=== PATIENT | male | born 1970 | race Hispanic/Latino ===

== ENCOUNTER → 2018-10-27 | Day surgery (SDC) | payer OTHER ==
[~2018-10-27] MED LIST: AMLODIPINE BESY10 MG PO; ASPIR 8181 MG PO; ATORVASTATIN CA40 MG PO; CLOPIDOGREL75 MG PO; DICYCLOMINE HCL10 MG; FENTANYL CITRATE/PF 100MCG/2 ML INJ ONE; HYOSCYAMINE 0.125 MG TAB ONE; INSULIN REGULAR, HUMAN 100 UNIT/1 ML 3ML VIAL ONE; JANUVIA100 MG PO; JARDIANCE; KETAMINE HCL INJ 50 MG/ML 10 ML VIAL ONE; LEVEMIR100 UNIT/1; LEVEMIR100 UNIT/1 SC; LEVEMIR100 UNIT/1 SQ; LIDOCAINE HCL 2% LOCAL INJ 5 ML SDV VIAL INJ ONE; LINZESS; LISINOPRIL10 MG PO; LORATADINE10 MG PO; LYRICA75 MG; LYRICA75 MG PO; METOPROLOL TART50 MG PO; MIDAZOLAM HCL 2 MG/2 ML VIAL ONE; NITROGLYCERIN0.4 MG SL; NORCO 10-325 T1 EACH; NOVALIN; NOVOLOG100 UNITS1; NOVOLOG100 UNITS1 SC; OXYCODONE HCL5 MG PO; PERCOCET 10-321 EACH; PLAVIX75 MG PO; PREVACID30 MG; PROPOFOL IV EMULSION 10 MG/ML 50 ML VIAL ONE
[2018-10-27 18:18] LABS: WBC,FECAL (FECAL LACTOFERRIN) NEGATIVE (NEGATIVE)
[2018-10-27 18:24] VITALS: BP 139/82
--- NOTE | 2018-10-27 18:54 | Operative Report ---
DATE OF PROCEDURE: 10/27/2018 SURGEON: Miah Truong MD PROCEDURES: 1. Esophagogastroduodenoscopy with biopsies. 2. Colonoscopy with biopsies. INDICATIONS FOR ESOPHAGOGASTRODUODENOSCOPY: Heartburn, indigestion, and bloating. INDICATIONS FOR COLONOSCOPY: Lower abdominal pain, intermittent diarrhea, and history of bright red blood per rectum. MEDICATIONS: The patient was done under MAC. Please see anesthesiologist's note. PROCEDURE IN DETAIL: With the patient in left lateral decubitus position, the flexible fiberoptic Olympus gastroscope was introduced into the esophagus under direct visualization without any difficulty. Scattered whitish plaques were noted in the esophagus, those were brushed and sent to stain for Vicky. The scope was then advanced with ease into the stomach. Mucosa overlying the antrum and the body revealed some patchy erythema and low-grade to moderate edema. Biopsies were obtained and sent to stain for H pylori. The pylorus was of normal contour and shape, it was intubated with ease. The scope was advanced all the way to the second portion of the duodenum. The scope was then withdrawn slowly and biopsies were obtained from the second portion of the duodenal bulb to rule out sprue. The scope was then withdrawn back into the stomach and retroflexed mucosa overlying the fundus and cardia appeared to be within normal limits. The scope was then straightened out, it was subsequently withdrawn. The patient tolerated the procedure well. IMPRESSION: 1. Rule out Vicky esophagitis. 2. Gastritis, biopsied. Biopsies sent to stain for Helicobacter pylori. 3. Rule out sprue. PLAN: Follow up histology. Initiate Protonix 40 mg one p.o. q.a.m. before meals. The patient was then turned around. After adequate lubrication of the anal canal, a flexible fiberoptic Olympus colonoscope was inserted into the rectum with ease and advanced all the way to the cecum. Mucosa overlying the cecum appeared to be within normal limits. The ileocecal valve was intubated and the scope was advanced into the terminal ileum. Biopsies were obtained. The scope was then withdrawn back into the colon. It was then withdrawn slowly. Mucosa overlying the ascending and the transverse grossly appeared to be within normal limits. There was some mild inflammatory changes noted in the left colon and random biopsies were obtained. The scope was then retroflexed into the distal rectum and small internal hemorrhoids were noted, none of which was actively bleeding. The scope was then straightened out, it was subsequently withdrawn. After securing an adequate stool specimen, that was sent for the appropriate stool studies. The patient tolerated the procedure well. IMPRESSION: 1. Mild patchy left-sided colitis. 2. Internal hemorrhoids, none actively bleeding. PLAN: Followup histology. Followup stool studies. Initiate Visbiome 1 p.o. b.i.d. and Bentyl 10 mg one p.o. t.i.d. Miah Truong MD [facility] [place] /[id number] cc: Dr. Zach Hall
[2018-10-28 14:20] LABS: C DIFFICILE TOXIN A&B AMP PROB NEGATIVE (NEGATIVE)
== END | disposition home or self-care (01) ==
LOC: OR 01:30
PROVIDERS: ATTEND Internal Medicine Gastroenterology
DX: K62.89 Other specified diseases of anus and rectum (principal); R10.9 Unspecified abdominal pain; R14.0 Abdominal distension (gaseous); K59.00 Constipation, unspecified; R10.32 Left lower quadrant pain; R19.7 Diarrhea, unspecified; G43.A0 Cyclical vomiting, in migraine, not intractable; Z68.37 Body mass index [BMI] 37.0-37.9, adult; Z95.1 Presence of aortocoronary bypass graft; J18.9 Pneumonia, unspecified organism; E11.9 Type 2 diabetes mellitus without complications; K21.9 Gastro-esophageal reflux disease without esophagitis; K44.9 Diaphragmatic hernia without obstruction or gangrene; Z87.442 Personal history of urinary calculi; I25.2 Old myocardial infarction; E78.00 Pure hypercholesterolemia, unspecified; K51.50 Left sided colitis without complications; K64.8 Other hemorrhoids; K29.50 Unspecified chronic gastritis without bleeding; Z79.4 Long term (current) use of insulin; Z79.82 Long term (current) use of aspirin
CPT/HCPCS: 36415; 43239; 45380; 82948; 83630; 83993; 87045; 87177; 87328; 87493; J1817; J2001; J2250; J3010

== ENCOUNTER → 2018-11-20 | Day surgery (SDC) | payer OTHER ==
[2018-11-14 15:44] LABS: ALANINE AMINOTRANSFERASE 26 IU/L (0-55); ALBUMIN/GLOBULIN RATIO 1.1 (0.8-2.0); ALKALINE PHOSPHATASE 129 IU/L (40-150); ANION GAP 15.9 mmol/L (8-16); BLOOD UREA NITROGEN 13 mg/dL (7-26); BUN/CREATININE RATIO 16 (6-25); CALCIUM 9.9 mg/dL (8.4-10.2); CARBON DIOXIDE 24 mmol/L (22-29); CHLORIDE 103 mmol/L (98-107); EST GLOMERULAR FILTRATION RATE > 60 ML/MIN (60-); GLUCOSE 88 mg/dL (74-118); POTASSIUM 3.9 mmol/L (3.5-5.1); SODIUM 139 mmol/L (136-145)
[~2018-11-20] MED LIST changes: +BACITRACIN 50,000 UNIT VIAL ONE; +BUPIVACAINE 0.5%/EPI 30 ML SDV INJ ONE; +DEXAMETHASONE SOD PHOS INJ 4 MG/ML VIAL ONE; +EPHEDRINE SULFATE INJ 50 MG/10 ML SYR ONE; +GLYCOPYRROLATE INJ 1MG/ 5 ML SYR ONE; -HYOSCYAMINE 0.125 MG TAB ONE; -INSULIN REGULAR, HUMAN 100 UNIT/1 ML 3ML VIAL ONE; -KETAMINE HCL INJ 50 MG/ML 10 ML VIAL ONE; +KETOROLAC TROMETHAMINE 30 MG/ML VIAL ONE; +LEVOFLOXACIN 500MG/D5W 100ML 100 ML IV ONE; +NEOSTIGMINE 5 MG/5ML SYR ONE; +ONDANSETRON HCL INJ 2MG/ML 2ML 2 MG/ML VIAL ONE; +PROPOFOL IV EMULSION 10 MG/ML 20 ML VIAL ONE; -PROPOFOL IV EMULSION 10 MG/ML 50 ML VIAL ONE; +ROCURONIUM BROMIDE 10 MG/ML 5ML VIAL ONE; +SEVOFLURANE INHAL SOLN 250 ML PEN BTL ONE; +SUCCINYLCHOLINE 200 MG/10 ML SYR ONE
[2018-11-20 15:29] VITALS: BP 106/80
--- NOTE | 2018-12-10 23:56 | Operative Report ---
DATE OF PROCEDURE: 11/20/2018 SURGEON: Nito Bright MD PREOPERATIVE DIAGNOSIS: Recurrent umbilical hernia. POSTOPERATIVE DIAGNOSIS: Recurrent umbilical hernia. OPERATIVE PROCEDURE: Repair of umbilical hernia with mesh. ANESTHESIA: General. INDICATION FOR SURGERY: A 48-year-old male with history of recurrent umbilical hernia with discomfort. The patient consented for repair. Attendant risks discussed. PROCEDURE FINDING: Recurrent umbilical hernia. DESCRIPTION OF PROCEDURE: The patient was brought to the OR and intubated. The abdomen was prepped with alcohol and draped in sterile fashion. A supraumbilical incision is made through the previous scar extending down to the fascia. The hernia sac was identified and dissected off the umbilicus. The sac protruded cephalad to the previous hernia repair with mesh. The previous mesh was noted and trimmed off with sharp scissor dissection. The fascial defect was delineated and we stayed in the preperitoneal space without seeing the intestine. With the preperitoneal space developed circumferentially 3-5 cm from the fascial edge, we then deployed a flat piece of Prolene mesh, approximately 6 cm in diameters into the preperitoneal space. The overlying fascia was closed in transverse direction with interrupted 0 Prolene suture, taking by into the underlying mesh. The fascial defect measured approximately 3 cm, which is closed in transverse direction as mentioned. Operative field was then irrigated. Hemostasis achieved. The subcutaneous tissue was then approximated with 3-0 Vicryl and the skin with subcuticular stitch. Dressing applied. The patient tolerated the procedure well, was extubated, and transported to recovery room. ESTIMATED BLOOD LOSS: 5 mL. Nito Bright MD D[facility] /[id number]
== END | disposition home or self-care (01) ==
LOC: OR 10:18
PROVIDERS: ATTEND Surgery
DX: K42.9 Umbilical hernia without obstruction or gangrene (principal); E11.9 Type 2 diabetes mellitus without complications; I10 Essential (primary) hypertension; G62.9 Polyneuropathy, unspecified; G47.33 Obstructive sleep apnea (adult) (pediatric); I25.810 Atherosclerosis of coronary artery bypass graft(s) without angina pectoris; I25.2 Old myocardial infarction; Z88.0 Allergy status to penicillin; Z01.812 Encounter for preprocedural laboratory examination; Z79.02 Long term (current) use of antithrombotics/antiplatelets; Z79.82 Long term (current) use of aspirin; Z79.84 Long term (current) use of oral hypoglycemic drugs; Z79.4 Long term (current) use of insulin; Z68.37 Body mass index [BMI] 37.0-37.9, adult; Z95.1 Presence of aortocoronary bypass graft
CPT/HCPCS: 36415; 80053; 82948; C1781; J1100; J1885; J1956; J2001; J2250; J2405; J3010

== ENCOUNTER 2019-06-18 15:28 | Emergency (ER) | payer OTHER ==
[~2019-06-18] VITALS: Ht 180.3 cm; Wt 117.9 kg
[~2019-06-18 15:28] MED LIST changes: -BACITRACIN 50,000 UNIT VIAL ONE; -BUPIVACAINE 0.5%/EPI 30 ML SDV INJ ONE; -DEXAMETHASONE SOD PHOS INJ 4 MG/ML VIAL ONE; -EPHEDRINE SULFATE INJ 50 MG/10 ML SYR ONE; -FENTANYL CITRATE/PF 100MCG/2 ML INJ ONE; -GLYCOPYRROLATE INJ 1MG/ 5 ML SYR ONE; -KETOROLAC TROMETHAMINE 30 MG/ML VIAL ONE; -LEVOFLOXACIN 500MG/D5W 100ML 100 ML IV ONE; -LIDOCAINE HCL 2% LOCAL INJ 5 ML SDV VIAL INJ ONE; -MIDAZOLAM HCL 2 MG/2 ML VIAL ONE; -NEOSTIGMINE 5 MG/5ML SYR ONE; -ONDANSETRON HCL INJ 2MG/ML 2ML 2 MG/ML VIAL ONE; -PROPOFOL IV EMULSION 10 MG/ML 20 ML VIAL ONE; -ROCURONIUM BROMIDE 10 MG/ML 5ML VIAL ONE; -SEVOFLURANE INHAL SOLN 250 ML PEN BTL ONE; -SUCCINYLCHOLINE 200 MG/10 ML SYR ONE
[2019-06-18] MEDS ORDERED: SODIUM CHLORIDE 0.9% 1000ML 1,000 ML IV STA (15:42)
[2019-06-18] MEDS ORDERED: ONDANSETRON HCL INJ 2MG/ML 2ML 2 MG/ML VIAL IV STA (15:42)
[2019-06-18] MEDS ORDERED: ASPIRIN 81 MG CHEW TAB PO ONE (15:45)
[2019-06-18] MEDS ORDERED: DICYCLOMINE HCL 20 MG/2 ML VIAL IM ONE (15:45)
[2019-06-18 16:11] LABS: BASOPHILS # (AUTO) 0.1 (0.0-0.1); BASOPHILS % 0.5 % (0.0-1.0); EOSINOPHILS # (AUTO) 0.1 (0.0-0.4); HEMATOCRIT 51.2 % (38.2-49.6); HEMOGLOBIN 17.5 g/dL (14.0-18.0); LYMPHOCYTES # (AUTO) 1.8 (1.0-3.2); MEAN CORPUSCULAR HEMOGLOBIN 30.5 pg (28-32); MEAN CORPUSCULAR HGB CONC 34.2 g/dL (31-35); MEAN CORPUSCULAR VOLUME 89.2 fL (81-99); MONOCYTES # (AUTO) 0.6 (0.2-0.8); NEUTROPHILS % 74.9 % (38.7-80.0); PLATELET COUNT 331 x10e3/uL (140-360); RED BLOOD COUNT 5.74 x10e6/uL (4.3-5.7); RED CELL DISTRIBUTION WIDTH 12.6 % (11.7-14.4)
[2019-06-18 16:19] LABS: INR 0.86; PROTHROMBIN TIME 12.2 seconds (11.9-14.5)
[2019-06-18 16:20] LABS: PARTIAL THROMBOPLASTIN TIME 28.3 seconds (23.8-35.5)
[2019-06-18 16:28] LABS: ALANINE AMINOTRANSFERASE 62 IU/L (0-55); ALBUMIN 3.9 g/dL (3.5-5.0); ALBUMIN/GLOBULIN RATIO 1.1 (0.8-2.0); ALKALINE PHOSPHATASE 136 IU/L (40-150); AMYLASE 15 U/L (25-125); ANION GAP 13.1 mmol/L (8-16); BLOOD UREA NITROGEN 9 mg/dL (7-26); BUN/CREATININE RATIO 10 (6-25); CALCIUM 9.6 mg/dL (8.4-10.2); CARBON DIOXIDE 30 mmol/L (22-29); CHLORIDE 98 mmol/L (98-107); CREATINE KINASE 94 IU/L (30-200); EST GLOMERULAR FILTRATION RATE > 60 ML/MIN (60-); GLUCOSE 363 mg/dL (74-118); LIPASE 5 U/L (8-78); POTASSIUM 4.1 mmol/L (3.5-5.1); SODIUM 137 mmol/L (136-145)
--- NOTE | 2019-06-18 17:12 | Diagnostic Imaging Report ---
EXAMINATION: CHEST SINGLE (PORTABLE) INDICATION: Cough COMPARISON: Chest radiograph 10/21/2018 FINDINGS: LINES/TUBES:EKG leads overlie the chest. LUNGS:The lungs are well-inflated. No focal consolidation or pulmonary edema. PLEURA:No pleural effusion or pneumothorax. MEDIASTINUM:The cardiomediastinal silhouette appears normal in size and shape. BONES/SOFT TISSUES:No acute osseous injury. ABDOMEN:No free air under the diaphragm. IMPRESSION: No focal pneumonia or pulmonary edema. Signed by: Rebecca Coulter MD on 06/18/2019 5:08 PM
[2019-06-18] MEDS ORDERED: INSULIN REGULAR, HUMAN 100 UNIT/1 ML 3ML VIAL SQ ONE (17:45)
[2019-06-18] MEDS ORDERED: KETOROLAC TROMETHAMINE 30 MG/ML VIAL IV STA (18:06)
[2019-06-18 18:16] LABS: BILIRUBIN,URINE NEGATIVE (NEGATIVE); CLARITY,URINE CLEAR (CLEAR); COLOR,URINE YELLOW (YELLOW); KETONES,URINE NEGATIVE (NEGATIVE); LEUKOCYTE ESTERASE ,URINE NEGATIVE (NEGATIVE); NITRITE,URINE NEGATIVE (NEGATIVE); PROTEIN,URINE DIPSTICK NEGATIVE (NEGATIVE); URINE UROBILINOGEN 0.2 mg/dL (0.2 - 1)
[2019-06-18] MEDS ORDERED: IOPAMIDOL 370 MG/ML 200 ML INFUS..BTL INJ ONE (18:17)
[2019-06-18] MEDS ORDERED: SODIUM CHLORIDE 0.9% 50ML 50 ML ONE (18:17)
--- NOTE | 2019-06-18 19:04 | Diagnostic Imaging Report ---
EXAM: CT Abdomen and Pelvis WITH contrast INDICATION: ^abd pain ^[id number] ^[id number] COMPARISON: None. TECHNIQUE: Abdomen and pelvis were scanned utilizing a multidetector helical scanner from the lung base to the pubic symphysis after administration of IV contrast. Coronal and sagittal reformations were obtained. Dose modulation, iterative reconstruction, and/or weight based adjustment of the mA/kV was utilized to reduce the radiation dose to as low as reasonably achievable. Routine protocol was performed. Scan was performed when during portal venous phase. IV CONTRAST: 150 mL of Omnipaque 300 ORAL CONTRAST: Water COMPLICATIONS: None RADIATION DOSE: Total DLP: 838.02 mGy-cm Estimated effective dose: (DLP x 0.015 x size factor) mSv CTDIvol has been reviewed. It is below the limits set by the Radiation Protocol Committee (RPC). FINDINGS: LINES and TUBES: None. LOWER THORAX: 4 mm right middle lobe pulmonary nodule (series 2 image 11) is unchanged, likely representing a scar.. HEPATOBILIARY: The liver is diffuse hypodense compared to the spleen, consistent with diffuse hepatic diffuse hepatic steatosis. No focal hepatic lesions. No biliary ductal dilation. SPLEEN: No splenomegaly. PANCREAS: Diffuse fatty atrophy. No focal lesion or ductal dilation. ADRENALS: No adrenal nodules. KIDNEYS/URETERS: 6 mm nonobstructing left lower pole renal calculus is unchanged. No hydronephrosis. PELVIC ORGANS/BLADDER: Unremarkable. PERITONEUM / RETROPERITONEUM: No free air or fluid. LYMPH NODES: No lymphadenopathy. VESSELS: Mild scattered atherosclerotic calcifications of the nonaneurysmal abdominal aorta and major branches. GI TRACT: colonic diverticulosis. No CT evidence of diverticulitis. Normal appendix. No bowel obstruction. BONES : No acute osseous injury. Mild degenerative changes of the visualized spine. SOFT TISSUES: Postsurgical changes of anterior abdominal surgery. IMPRESSION: 1. Stable 6 mm nonobstructing left lower pole renal calculus. No hydronephrosis. 2. Hepatic steatosis. No focal lesion. 3. Colonic diverticulosis with no evidence of diverticulitis. Signed by: Kai Duong MD on 06/18/2019 7:01 PM
[2019-06-18 19:33] VITALS: BP 141/96
== END 2019-06-18 19:39 | disposition home or self-care (01) ==
LOC: ER 15:28
DX: R10.11 Right upper quadrant pain (principal); R10.84 Generalized abdominal pain; R11.2 Nausea with vomiting, unspecified; R19.7 Diarrhea, unspecified; R05 Cough; E11.65 Type 2 diabetes mellitus with hyperglycemia; K57.90 Diverticulosis of intestine, part unspecified, without perforation or abscess without bleeding; K76.0 Fatty (change of) liver, not elsewhere classified
CPT/HCPCS: 36415; 71045; 74177; 80053; 81001; 82150; 82550; 82553; 83690; 83880; 84484; 85025; 85610; 85730; 87086; 87400; 99284; J0500; J1817; J1885; J2405; J7030; Q9967

== ENCOUNTER → 2019-09-19 | Outpatient (CLI) | payer OTHER ==
--- NOTE | 2019-09-19 14:23 | Diagnostic Imaging Report ---
Exam: KUB - 2 views Indication: Abdominal Pain Comparison: CT abdomen and pelvis of 06/18/2019 Findings: Nonobstructive bowel gas pattern. No free air. 5 mm left lower pole renal calculus. Status post cholecystectomy. No acute osseous injury. Scattered atherosclerotic arterial calcifications. Sternotomy wires partially visualized with unchanged fractures of the bottom 2 wires. Impression: Nonobstructive bowel gas pattern. No free air. 5 mm left renal calculus. Signed by: Rebecca Coulter MD on 09/19/2019 2:19 PM
== END ==
LOC: RAD 13:52
PROVIDERS: ATTEND Internal Medicine Gastroenterology
DX: R10.10 Upper abdominal pain, unspecified (principal); K59.00 Constipation, unspecified
CPT/HCPCS: 74018

== ENCOUNTER → 2019-10-07 | Outpatient (CLI) | payer OTHER ==
[~2019-10-07] MED LIST changes: +DIATRIZOATE MEGL/DIATRIZOA SOD 30 ML BTL PO ONE; +IOPAMIDOL 370 MG/ML 200 ML INFUS..BTL INJ ONE; +SODIUM CHLORIDE 0.9% 50ML 50 ML ONE
[2019-10-07 10:42] LABS: BLOOD UREA NITROGEN 10 mg/dL (7-26); BUN/CREATININE RATIO 10 (6-25); CREATININE, SERUM 0.98 mg/dL (0.72-1.25); EST GLOMERULAR FILTRATION RATE > 60 ML/MIN (60-)
--- NOTE | 2019-10-07 14:07 | Diagnostic Imaging Report ---
EXAM: CT Abdomen and Pelvis WITH intravenous contrast INDICATION: Upper abdominal pain COMPARISON: None. TECHNIQUE: Abdomen and pelvis were scanned utilizing a multidetector helical scanner from the lung base to the pubic symphysis after administration of IV contrast. Coronal and sagittal reformations were obtained. Routine protocol was performed. Scan was performed during portal venous phase. IV CONTRAST: 100mL of Isovue 370 ORAL CONTRAST: Gastrografin RADIATION DOSE: Total DLP: 908 mGy*cm Dose modulation, iterative reconstruction, and/or weight based adjustment of the mA/kV was utilized to reduce the radiation dose to as low as reasonably achievable. FINDINGS: LOWER THORAX: Normal. HEPATOBILIARY: Hepatic steatosis. No focal liver lesion. No biliary ductal dilation. Status post cholecystectomy. SPLEEN: No splenomegaly. PANCREAS: No focal masses or ductal dilatation. ADRENALS: No adrenal nodules. KIDNEYS/URETERS: 5 mm left lower pole nonobstructive renal calculus. No hydronephrosis or hydroureter. No right renal calculi. PELVIC ORGANS/BLADDER: Unremarkable. PERITONEUM / RETROPERITONEUM: No free air or fluid. LYMPH NODES: No lymphadenopathy. VESSELS: Unremarkable. GI TRACT: No abnormal bowel thickening. No bowel obstruction. Normal appendix. BONES AND SOFT TISSUES: No acute osseous injury. No suspicious lytic or blastic lesions. IMPRESSION: 5 mm nonobstructive left lower pole renal calculus. No hydronephrosis or hydroureter. Diffuse hepatic steatosis. Signed by: Rebecca Coulter MD on 10/07/2019 2:03 PM
== END ==
LOC: CT 09:37
PROVIDERS: ATTEND Internal Medicine Gastroenterology
DX: R10.10 Upper abdominal pain, unspecified (principal); K59.00 Constipation, unspecified
CPT/HCPCS: 36415; 74177; 82565; 82948; 84520; Q9967

== ENCOUNTER 2020-10-26 01:30 | Emergency (ER) | payer OTHER ==
[~2020-10-26] VITALS: Ht 180.3 cm; Wt 117.9 kg
[~2020-10-26 01:30] MED LIST changes: -DIATRIZOATE MEGL/DIATRIZOA SOD 30 ML BTL PO ONE; -IOPAMIDOL 370 MG/ML 200 ML INFUS..BTL INJ ONE; -SODIUM CHLORIDE 0.9% 50ML 50 ML ONE
[2020-10-26 01:48] LABS: BASOPHILS # (AUTO) 0.1 (0.0-0.1); BASOPHILS % 0.5 % (0.0-1.0); EOSINOPHILS # (AUTO) 0.1 (0.0-0.4); EOSINOPHILS % 1.1 % (0.0-6.0); HEMATOCRIT 49.7 % (38.2-49.6); HEMOGLOBIN 16.9 g/dL (14.0-18.0); LYMPHOCYTES # (AUTO) 2.2 (1.0-3.2); MEAN CORPUSCULAR HEMOGLOBIN 29.8 pg (28-32); MEAN CORPUSCULAR VOLUME 87.5 fL (81-99); MONOCYTES # (AUTO) 0.6 (0.2-0.8); MONOCYTES % 5.8 % (4.4-11.3); PLATELET COUNT 328 x10e3/uL (140-360); RED BLOOD COUNT 5.68 x10e6/uL (4.3-5.7); RED CELL DISTRIBUTION WIDTH 13.1 % (11.7-14.4)
[2020-10-26 02:07] LABS: ALANINE AMINOTRANSFERASE 77 IU/L (0-55); ALBUMIN 3.7 g/dL (3.5-5.0); ALKALINE PHOSPHATASE 140 IU/L (40-150); ANION GAP 16.4 mmol/L (8-16); BLOOD UREA NITROGEN 10 mg/dL (7-26); BUN/CREATININE RATIO 9 (6-25); CALCIUM 9.4 mg/dL (8.4-10.2); CARBON DIOXIDE 25 mmol/L (22-29); CHLORIDE 99 mmol/L (98-107); CREATINE KINASE 38 IU/L (30-200); CREATININE, SERUM 1.07 mg/dL (0.72-1.25); EST GLOMERULAR FILTRATION RATE 73 ML/MIN (60-); POTASSIUM 4.4 mmol/L (3.5-5.1); SODIUM 136 mmol/L (136-145)
[2020-10-26 02:09] LABS: GLUCOSE 507 mg/dL (74-118)
[2020-10-26] MEDS ORDERED: SODIUM CHLORIDE 0.9% 1000ML 1,000 ML IV ONE (03:00)
[2020-10-26] MEDS ORDERED: INSULIN REGULAR, HUMAN 100 UNIT/1 ML SQ ONE (03:00)
[2020-10-26 06:25] VITALS: BP 158/99
== END 2020-10-26 06:27 | disposition home or self-care (01) ==
LOC: ER 01:37
DX: R07.9 Chest pain, unspecified (principal); G51.0 Bell's palsy; E11.65 Type 2 diabetes mellitus with hyperglycemia; R94.31 Abnormal electrocardiogram [ECG] [EKG]
CPT/HCPCS: 36415; 70450; 71045; 80053; 82550; 82553; 82948; 84484; 85025; 93005; 99284; J7030

== ENCOUNTER 2021-03-20 19:58 | Inpatient (IN) | payer MEDICARE, OTHER ==
[~2021-03-20] VITALS: Ht 180.3 cm; Wt 109.9 kg
[2021-03-20] MEDS: CEFTRIAXONE 2 GM in SODIUM CHLORIDE 0.9% 100 ML IV SCH ×2 (22:30→22:52)
[2021-03-20] MEDS ORDERED: SODIUM CHLORIDE 0.9% 100 ML ONE (23:08)
[2021-03-20] MEDS ORDERED: DEXTROSE 50% SYRINGE 50 ML IV PRN (23:15)
[2021-03-20] MEDS ORDERED: SODIUM CHLORIDE 0.9% 1000ML 1,000 ML IV SCH (23:15)
[2021-03-20 23:25] LABS: BASOPHILS # (AUTO) 0.1 (0.0-0.1); BASOPHILS % 0.4 % (0.0-1.0); EOSINOPHILS # (AUTO) 0.1 (0.0-0.4); EOSINOPHILS % 0.3 % (0.0-6.0); HEMATOCRIT 49.4 % (38.2-49.6); HEMOGLOBIN 16.2 g/dL (14.0-18.0); LYMPHOCYTES # (AUTO) 1.1 (1.0-3.2); LYMPHOCYTES % 5.1 % (18.0-39.1); MEAN CORPUSCULAR HEMOGLOBIN 29.6 pg (28-32); MEAN CORPUSCULAR HGB CONC 32.8 g/dL (31-35); MEAN CORPUSCULAR VOLUME 90.1 fL (81-99); MONOCYTES % 4.8 % (4.4-11.3); NEUTROPHILS # (AUTO) 18.1 (2.1-6.9); NEUTROPHILS % 88.5 % (38.7-80.0); PLATELET COUNT 384 x10e3/uL (140-360); RED BLOOD COUNT 5.48 x10e6/uL (4.3-5.7); RED CELL DISTRIBUTION WIDTH 12.3 % (11.7-14.4)
[2021-03-20 23:37] LABS: CREATINE KINASE MB 0.8 ng/mL (0-5.0)
[2021-03-20 23:51] LABS: ALBUMIN 2.5 g/dL (3.5-5.0); ALBUMIN/GLOBULIN RATIO 0.5 (0.8-2.0); ANION GAP 19.1 mmol/L (8-16); CALCIUM 10.3 mg/dL (8.4-10.2); CREATININE, SERUM 0.91 mg/dL (0.72-1.25); POTASSIUM 4.1 mmol/L (3.5-5.1)
[2021-03-21] VITALS (10 sets, daily range): BP systolic 146–180; BP diastolic 76–101
[2021-03-21] MEDS ORDERED: INSULIN GLARGINE 100 UNITS/ML VIAL SQ ONE (01:00)
[2021-03-21] MEDS ORDERED: LORATADINE 10 MG TAB PO PRN (01:00)
[2021-03-21] MEDS ORDERED: MAGNESIUM/ALUMINUM/SIMETHICONE 30 ML UDC PO PRN (01:00)
[2021-03-21] MEDS ORDERED: INSULIN REGULAR, HUMAN 100 UNIT/1 ML SQ ONE (01:00)
[2021-03-21] MEDS ORDERED: METHYLPREDNISOLONE SOD SUCC 125 MG/2ML VIAL IV ONE (01:00)
[2021-03-21] MEDS: METOPROLOL TARTRATE 50 MG TAB PO SCH ×3 (01:46→21:21)
[2021-03-21] MEDS ORDERED: INSULIN REGULAR, HUMAN 100 UNIT/1 ML SQ SCH (07:30)
[2021-03-21 07:43] LABS: CREATINE KINASE MB 0.5 ng/mL (0-5.0)
[2021-03-21 07:55] LABS: CHOL/HDL RATIO 6.5 (3.9-4.7)
[2021-03-21 08:00] LABS: MAGNESIUM 1.9 MG/DL (1.3-2.1); PHOSPHORUS 3.2 MG/DL (2.3-4.7)
[2021-03-21] MEDS: DOCUSATE SODIUM 100 MG CAP PO SCH ×3 (08:00→16:50)
[2021-03-21] MEDS ORDERED: SODIUM CHLORIDE 0.9% 250ML 250 ML ONE (08:07)
[2021-03-21 08:20] LABS: FERRITIN 1155.82 ng/mL (21.81-274.66)
[2021-03-21] MEDS ORDERED: METOPROLOL TARTRATE 50 MG TAB PO SCH (09:00)
[2021-03-21] MEDS: POLYETHYLENE GLYCOL 3350 17 GM PACK PO SCH (09:00)
[2021-03-21] MEDS ORDERED: DEXAMETHASONE SOD PHOS 10 MG/1 ML VIAL IV SCH (09:00)
[2021-03-21] MEDS: ACETAMINOPHEN 325 MG TAB PO PRN (09:00)
[2021-03-21] MEDS ORDERED: METHYLPREDNISOLONE SOD SUCC 125 MG/2ML VIAL IV SCH (09:00)
[2021-03-21] MEDS: PREGABALIN 75 MG CAP PO SCH (09:12)
[2021-03-21] MEDS: ASPIRIN 81 MG CHEW TAB PO SCH (09:12)
[2021-03-21] MEDS: LISINOPRIL 10 MG TAB PO SCH (09:12)
[2021-03-21] MEDS: DICYCLOMINE HCL 10 MG CAP PO SCH ×2 (09:12→16:50)
[2021-03-21] MEDS: CLOPIDOGREL BISULFATE 75 MG TAB PO SCH (09:12)
[2021-03-21] MEDS: PANTOPRAZOLE SOD 40 MG TABEC PO SCH (09:13)
[2021-03-21] MEDS: ENOXAPARIN SOD INJ 40 MG/0.4 ML SYR SC SCH ×2 (09:13→16:50)
[2021-03-21] MEDS: ZINC SULFATE 50 MG CAP PO SCH (09:13)
[2021-03-21] MEDS: ASCORBIC ACID 500 MG TAB PO SCH ×2 (09:13→16:50)
[2021-03-21] MEDS: INSULIN REGULAR, HUMAN 100 UNIT/1 ML SQ SCH ×4 (10:23→21:22)
[2021-03-21 10:27] LABS: BASOPHILS # (AUTO) 0.1 (0.0-0.1); BASOPHILS % 0.3 % (0.0-1.0); EOSINOPHILS % 0.1 % (0.0-6.0); HEMATOCRIT 46.4 % (38.2-49.6); HEMOGLOBIN 15.7 g/dL (14.0-18.0); LYMPHOCYTES # (AUTO) 0.7 (1.0-3.2); LYMPHOCYTES % 4.6 % (18.0-39.1); MEAN CORPUSCULAR HEMOGLOBIN 29.8 pg (28-32); MEAN CORPUSCULAR HGB CONC 33.8 g/dL (31-35); MONOCYTES # (AUTO) 0.2 (0.2-0.8); MONOCYTES % 1.1 % (4.4-11.3); NEUTROPHILS # (AUTO) 13.8 (2.1-6.9); NEUTROPHILS % 92.7 % (38.7-80.0); PLATELET COUNT 349 x10e3/uL (140-360); RED BLOOD COUNT 5.27 x10e6/uL (4.3-5.7); RED CELL DISTRIBUTION WIDTH 12.1 % (11.7-14.4)
[2021-03-21 10:40] LABS: ALBUMIN 2.4 g/dL (3.5-5.0); ALBUMIN/GLOBULIN RATIO 0.5 (0.8-2.0); ANION GAP 20.1 mmol/L (8-16); CALCIUM 9.4 mg/dL (8.4-10.2); CREATININE, SERUM 0.77 mg/dL (0.72-1.25); POTASSIUM 4.1 mmol/L (3.5-5.1)
[2021-03-21 11:31] LABS: LYMPHOCYTES % (MANUAL) 4 % (19-48); MONOCYTES % (MANUAL) 1 % (3.4-9.0); NEUTROPHILS % (MANUAL) 95 % (40-74); PLATELET ESTIMATE ADEQUATE; PLATELET MORPHOLOGY COMMENT NORMAL; RBC MORPHOLOGY COMMENT NORMAL
[2021-03-21] MEDS: INSULIN LISPRO 100 UNIT/1 ML 3ML VIAL SQ SCH ×2 (11:52→16:52)
[2021-03-21] MEDS: GUAIFENESIN/CODEINE 5 ML LIQD PO PRN (12:24)
[2021-03-21] MEDS ORDERED: REMDESIVIR 100MG 200 MG in SODIUM CHLORIDE 0.9% 100 ML IV ONE (13:00)
[2021-03-21 16:27] LABS: CREATINE KINASE MB 0.8 ng/mL (0-5.0)
[2021-03-21] MEDS: ATORVASTATIN 20 MG TAB PO SCH (21:21)
[2021-03-21] MEDS: INSULIN GLARGINE 100 UNITS/ML VIAL SQ SCH (21:23)
[2021-03-22] VITALS (14 sets, daily range): BP systolic 144–180; BP diastolic 76–96
[2021-03-22 07:00] LABS: BASOPHILS % 0.2 % (0.0-1.0); EOSINOPHILS % 0.1 % (0.0-6.0); HEMATOCRIT 43.1 % (38.2-49.6); HEMOGLOBIN 14.2 g/dL (14.0-18.0); LYMPHOCYTES # (AUTO) 1.5 (1.0-3.2); LYMPHOCYTES % 7.9 % (18.0-39.1); MEAN CORPUSCULAR HEMOGLOBIN 29.5 pg (28-32); MEAN CORPUSCULAR HGB CONC 32.9 g/dL (31-35); MEAN CORPUSCULAR VOLUME 89.6 fL (81-99); MONOCYTES # (AUTO) 0.8 (0.2-0.8); MONOCYTES % 4.2 % (4.4-11.3); NEUTROPHILS # (AUTO) 16.7 (2.1-6.9); NEUTROPHILS % 86.1 % (38.7-80.0); PLATELET COUNT 401 x10e3/uL (140-360); RED BLOOD COUNT 4.81 x10e6/uL (4.3-5.7); RED CELL DISTRIBUTION WIDTH 12.1 % (11.7-14.4)
[2021-03-22 07:17] LABS: ALBUMIN/GLOBULIN RATIO 0.5 (0.8-2.0); ANION GAP 12.4 mmol/L (8-16); CALCIUM 8.3 mg/dL (8.4-10.2); CREATININE, SERUM 0.73 mg/dL (0.72-1.25); POTASSIUM 3.4 mmol/L (3.5-5.1)
[2021-03-22] MEDS: INSULIN LISPRO 100 UNIT/1 ML 3ML VIAL SQ SCH ×3 (08:24→16:30)
[2021-03-22] MEDS: INSULIN REGULAR, HUMAN 100 UNIT/1 ML SQ SCH ×4 (08:24→21:17)
[2021-03-22] MEDS: DICYCLOMINE HCL 10 MG CAP PO SCH ×2 (08:25→16:28)
[2021-03-22] MEDS: ASPIRIN 81 MG CHEW TAB PO SCH (08:25)
[2021-03-22] MEDS: GUAIFENESIN/CODEINE 5 ML LIQD PO PRN ×3 (08:25→23:17)
[2021-03-22] MEDS: CEFTRIAXONE 2 GM in SODIUM CHLORIDE 0.9% 100 ML IV SCH (08:25)
[2021-03-22] MEDS: ASCORBIC ACID 500 MG TAB PO SCH ×2 (08:26→16:28)
[2021-03-22] MEDS: PREGABALIN 75 MG CAP PO SCH (08:26)
[2021-03-22] MEDS: LISINOPRIL 10 MG TAB PO SCH (08:26)
[2021-03-22] MEDS: PANTOPRAZOLE SOD 40 MG TABEC PO SCH (08:26)
[2021-03-22] MEDS: CLOPIDOGREL BISULFATE 75 MG TAB PO SCH (08:26)
[2021-03-22] MEDS: POLYETHYLENE GLYCOL 3350 17 GM PACK PO SCH (08:26)
[2021-03-22] MEDS: DOCUSATE SODIUM 100 MG CAP PO SCH ×3 (08:26→16:28)
[2021-03-22] MEDS: METOPROLOL TARTRATE 50 MG TAB PO SCH ×2 (08:26→20:04)
[2021-03-22] MEDS: ENOXAPARIN SOD INJ 40 MG/0.4 ML SYR SC SCH ×2 (08:26→16:36)
[2021-03-22] MEDS: ZINC SULFATE 50 MG CAP PO SCH (08:26)
[2021-03-22] MEDS ORDERED: DEXAMETHASONE SOD PHOS 10 MG/1 ML VIAL IV SCH (09:00)
[2021-03-22] MEDS ORDERED: SODIUM CHLORIDE 0.9% 1000ML 1,000 ML IV ONE (10:15)
[2021-03-22] MEDS ORDERED: POTASSIUM CHLORIDE 20 MEQ TAB CR PO ONE (10:30)
[2021-03-22] MEDS ORDERED: SODIUM CHLORIDE 0.9% 100 ML ONE (12:04)
[2021-03-22] MEDS ORDERED: IOPAMIDOL 370 MG/ML 200 ML INFUS..BTL INJ ONE ×3 (12:04→23:43)
[2021-03-22] MEDS: REMDESIVIR 100MG 100 MG in SODIUM CHLORIDE 0.9% 100 ML IV SCH (13:25)
[2021-03-22] MEDS: BENZONATATE 100 MG CAP PO SCH ×2 (13:26→21:14)
[2021-03-22] MEDS: ATORVASTATIN 20 MG TAB PO SCH (20:04)
[2021-03-22] MEDS: HYDRALAZINE HCL 20 MG/ML VIAL IV PRN (21:14)
[2021-03-22] MEDS: INSULIN GLARGINE 100 UNITS/ML VIAL SQ SCH (21:17)
[2021-03-22] MEDS ORDERED: SODIUM CHLORIDE 0.9% 50ML 50 ML ONE (22:48)
[2021-03-23] VITALS (23 sets, daily range): BP systolic 78–180; BP diastolic 63–87
[2021-03-23] MEDS: HYDRALAZINE HCL 20 MG/ML VIAL IV PRN (02:14)
[2021-03-23 05:24] LABS: BASOPHILS % 0.3 % (0.0-1.0); EOSINOPHILS % 0.3 % (0.0-6.0); HEMATOCRIT 43.6 % (38.2-49.6); HEMOGLOBIN 14.5 g/dL (14.0-18.0); LYMPHOCYTES # (AUTO) 1.1 (1.0-3.2); LYMPHOCYTES % 7.1 % (18.0-39.1); MEAN CORPUSCULAR HEMOGLOBIN 29.5 pg (28-32); MEAN CORPUSCULAR HGB CONC 33.3 g/dL (31-35); MEAN CORPUSCULAR VOLUME 88.8 fL (81-99); MONOCYTES # (AUTO) 0.8 (0.2-0.8); MONOCYTES % 5.6 % (4.4-11.3); NEUTROPHILS # (AUTO) 12.5 (2.1-6.9); NEUTROPHILS % 84.9 % (38.7-80.0); PLATELET COUNT 403 x10e3/uL (140-360); RED BLOOD COUNT 4.91 x10e6/uL (4.3-5.7); RED CELL DISTRIBUTION WIDTH 12.1 % (11.7-14.4)
[2021-03-23] MEDS: BENZONATATE 100 MG CAP PO SCH ×3 (06:00→21:40)
[2021-03-23 06:03] LABS: ALBUMIN 1.9 g/dL (3.5-5.0); ALBUMIN/GLOBULIN RATIO 0.5 (0.8-2.0); ANION GAP 12.4 mmol/L (8-16); CALCIUM 8.6 mg/dL (8.4-10.2); CREATININE, SERUM 0.64 mg/dL (0.72-1.25); POTASSIUM 3.4 mmol/L (3.5-5.1)
[2021-03-23] MEDS ORDERED: POTASSIUM CHLORIDE 20 MEQ TAB CR PO ONE (07:45)
[2021-03-23] MEDS: INSULIN LISPRO 100 UNIT/1 ML 3ML VIAL SQ SCH ×3 (08:24→17:33)
[2021-03-23] MEDS: PANTOPRAZOLE SOD 40 MG TABEC PO SCH (08:25)
[2021-03-23] MEDS: ASPIRIN 81 MG CHEW TAB PO SCH (08:25)
[2021-03-23] MEDS: DOCUSATE SODIUM 100 MG CAP PO SCH ×3 (08:25→17:32)
[2021-03-23] MEDS: ENOXAPARIN SOD INJ 40 MG/0.4 ML SYR SC SCH ×2 (08:25→17:32)
[2021-03-23] MEDS: CEFTRIAXONE 2 GM in SODIUM CHLORIDE 0.9% 100 ML IV SCH (08:25)
[2021-03-23] MEDS: DICYCLOMINE HCL 10 MG CAP PO SCH ×2 (08:25→17:32)
[2021-03-23] MEDS: POLYETHYLENE GLYCOL 3350 17 GM PACK PO SCH (08:25)
[2021-03-23] MEDS: ZINC SULFATE 50 MG CAP PO SCH (08:25)
[2021-03-23] MEDS: PREGABALIN 75 MG CAP PO SCH (08:25)
[2021-03-23] MEDS: DEXAMETHASONE SOD PHOS 10 MG/1 ML VIAL IV SCH (08:25)
[2021-03-23] MEDS: LISINOPRIL 10 MG TAB PO SCH (08:25)
[2021-03-23] MEDS: CLOPIDOGREL BISULFATE 75 MG TAB PO SCH (08:25)
[2021-03-23] MEDS: METOPROLOL TARTRATE 50 MG TAB PO SCH ×2 (08:25→21:40)
[2021-03-23] MEDS: ASCORBIC ACID 500 MG TAB PO SCH ×2 (08:25→17:32)
[2021-03-23] MEDS: REMDESIVIR 100MG 100 MG in SODIUM CHLORIDE 0.9% 100 ML IV SCH (13:55)
[2021-03-23] MEDS ORDERED: SODIUM CHLORIDE 0.9% 250ML 250 ML ONE (14:06)
[2021-03-23] MEDS: BARICITINIB 2 MG TABLET PO SCH (15:29)
[2021-03-23] MEDS: ATORVASTATIN 20 MG TAB PO SCH (21:40)
[2021-03-23] MEDS: INSULIN GLARGINE 100 UNITS/ML VIAL SQ SCH (21:40)
[2021-03-24] VITALS (26 sets, daily range): BP systolic 129–167; BP diastolic 69–104
[2021-03-24] MEDS: BENZONATATE 100 MG CAP PO SCH ×3 (05:00→21:50)
[2021-03-24] MEDS: GUAIFENESIN/CODEINE 5 ML LIQD PO PRN ×2 (05:22→14:58)
[2021-03-24 05:51] LABS: BASOPHILS % 0.2 % (0.0-1.0); EOSINOPHILS # (AUTO) 0.1 (0.0-0.4); EOSINOPHILS % 0.5 % (0.0-6.0); HEMATOCRIT 44.2 % (38.2-49.6); HEMOGLOBIN 14.5 g/dL (14.0-18.0); LYMPHOCYTES # (AUTO) 1.4 (1.0-3.2); LYMPHOCYTES % 7.1 % (18.0-39.1); MEAN CORPUSCULAR HEMOGLOBIN 29.8 pg (28-32); MEAN CORPUSCULAR HGB CONC 32.8 g/dL (31-35); MEAN CORPUSCULAR VOLUME 90.8 fL (81-99); MONOCYTES # (AUTO) 0.9 (0.2-0.8); MONOCYTES % 4.4 % (4.4-11.3); NEUTROPHILS # (AUTO) 16.9 (2.1-6.9); NEUTROPHILS % 86.7 % (38.7-80.0); PLATELET COUNT 458 x10e3/uL (140-360); RED BLOOD COUNT 4.87 x10e6/uL (4.3-5.7); RED CELL DISTRIBUTION WIDTH 12.6 % (11.7-14.4)
[2021-03-24 06:23] LABS: ALBUMIN 1.9 g/dL (3.5-5.0); ALBUMIN/GLOBULIN RATIO 0.4 (0.8-2.0); ANION GAP 13.5 mmol/L (8-16); CALCIUM 8.7 mg/dL (8.4-10.2); CREATININE, SERUM 0.65 mg/dL (0.72-1.25); POTASSIUM 3.5 mmol/L (3.5-5.1)
[2021-03-24] MEDS: CEFTRIAXONE 2 GM in SODIUM CHLORIDE 0.9% 100 ML IV SCH (08:12)
[2021-03-24] MEDS: ASPIRIN 81 MG CHEW TAB PO SCH (08:12)
[2021-03-24] MEDS: BARICITINIB 2 MG TABLET PO SCH (08:12)
[2021-03-24] MEDS: PREGABALIN 75 MG CAP PO SCH (08:12)
[2021-03-24] MEDS: DEXAMETHASONE SOD PHOS 10 MG/1 ML VIAL IV SCH (08:12)
[2021-03-24] MEDS: METOPROLOL TARTRATE 50 MG TAB PO SCH ×2 (08:12→20:46)
[2021-03-24] MEDS: DICYCLOMINE HCL 10 MG CAP PO SCH ×2 (08:12→16:11)
[2021-03-24] MEDS: CLOPIDOGREL BISULFATE 75 MG TAB PO SCH (08:12)
[2021-03-24] MEDS: PANTOPRAZOLE SOD 40 MG TABEC PO SCH (08:12)
[2021-03-24] MEDS: DOCUSATE SODIUM 100 MG CAP PO SCH ×3 (08:12→16:12)
[2021-03-24] MEDS: POLYETHYLENE GLYCOL 3350 17 GM PACK PO SCH (08:12)
[2021-03-24] MEDS: INSULIN LISPRO 100 UNIT/1 ML 3ML VIAL SQ SCH ×3 (08:12→16:11)
[2021-03-24] MEDS: ENOXAPARIN SOD INJ 40 MG/0.4 ML SYR SC SCH ×2 (08:13→16:12)
[2021-03-24] MEDS: LISINOPRIL 10 MG TAB PO SCH (08:13)
[2021-03-24] MEDS: ZINC SULFATE 50 MG CAP PO SCH (08:13)
[2021-03-24] MEDS: ASCORBIC ACID 500 MG TAB PO SCH ×2 (08:13→16:12)
[2021-03-24] MEDS ORDERED: BARICITINIB 2 MG TABLET PO SCH (09:00)
[2021-03-24] MEDS: REMDESIVIR 100MG 100 MG in SODIUM CHLORIDE 0.9% 100 ML IV SCH (12:13)
[2021-03-24] MEDS: INSULIN GLARGINE 100 UNITS/ML VIAL SQ SCH (20:45)
[2021-03-24] MEDS: ATORVASTATIN 20 MG TAB PO SCH (20:47)
[2021-03-25] VITALS (16 sets, daily range): BP systolic 120–162; BP diastolic 69–95
[2021-03-25] MEDS: BENZONATATE 100 MG CAP PO SCH (06:19)
[2021-03-25 06:41] LABS: BASOPHILS % 0.1 % (0.0-1.0); EOSINOPHILS # (AUTO) 0.1 (0.0-0.4); EOSINOPHILS % 0.5 % (0.0-6.0); HEMATOCRIT 43.4 % (38.2-49.6); HEMOGLOBIN 14.2 g/dL (14.0-18.0); LYMPHOCYTES # (AUTO) 0.8 (1.0-3.2); LYMPHOCYTES % 4.3 % (18.0-39.1); MEAN CORPUSCULAR HEMOGLOBIN 29.5 pg (28-32); MEAN CORPUSCULAR HGB CONC 32.7 g/dL (31-35); MEAN CORPUSCULAR VOLUME 90.2 fL (81-99); MONOCYTES # (AUTO) 0.8 (0.2-0.8); NEUTROPHILS # (AUTO) 17.4 (2.1-6.9); NEUTROPHILS % 90.2 % (38.7-80.0); PLATELET COUNT 462 x10e3/uL (140-360); RED BLOOD COUNT 4.81 x10e6/uL (4.3-5.7); RED CELL DISTRIBUTION WIDTH 12.4 % (11.7-14.4)
[2021-03-25 07:27] LABS: ALBUMIN 1.8 g/dL (3.5-5.0); ALBUMIN/GLOBULIN RATIO 0.4 (0.8-2.0); ANION GAP 13.9 mmol/L (8-16); CALCIUM 8.3 mg/dL (8.4-10.2); CREATININE, SERUM 0.68 mg/dL (0.72-1.25); POTASSIUM 3.9 mmol/L (3.5-5.1)
[2021-03-25] MEDS: INSULIN LISPRO 100 UNIT/1 ML 3ML VIAL SQ SCH ×3 (07:53→17:56)
[2021-03-25] MEDS: DEXAMETHASONE SOD PHOS 10 MG/1 ML VIAL IV SCH (08:21)
[2021-03-25] MEDS: DOCUSATE SODIUM 100 MG CAP PO SCH ×3 (08:21→16:33)
[2021-03-25] MEDS: CEFTRIAXONE 2 GM in SODIUM CHLORIDE 0.9% 100 ML IV SCH (08:21)
[2021-03-25] MEDS: ENOXAPARIN SOD INJ 40 MG/0.4 ML SYR SC SCH ×2 (08:21→17:55)
[2021-03-25] MEDS: METOPROLOL TARTRATE 50 MG TAB PO SCH ×2 (09:00→20:50)
[2021-03-25] MEDS: CLOPIDOGREL BISULFATE 75 MG TAB PO SCH (09:00)
[2021-03-25] MEDS: ZINC SULFATE 50 MG CAP PO SCH (09:00)
[2021-03-25] MEDS: POLYETHYLENE GLYCOL 3350 17 GM PACK PO SCH (09:00)
[2021-03-25] MEDS: LISINOPRIL 10 MG TAB PO SCH (09:00)
[2021-03-25] MEDS: ASPIRIN 81 MG CHEW TAB PO SCH (09:00)
[2021-03-25] MEDS: ASCORBIC ACID 500 MG TAB PO SCH ×2 (09:00→16:33)
[2021-03-25] MEDS: PREGABALIN 75 MG CAP PO SCH (09:00)
[2021-03-25] MEDS: GUAIFENESIN/CODEINE 5 ML LIQD PO PRN ×2 (10:00→15:50)
[2021-03-25] MEDS: BARICITINIB 2 MG TABLET PO SCH (13:10)
[2021-03-25] MEDS: FAMOTIDINE 20 MG/2 ML VIAL IV SCH (17:55)
[2021-03-25] MEDS: INSULIN GLARGINE 100 UNITS/ML VIAL SQ SCH (20:51)
[2021-03-26] VITALS (24 sets, daily range): BP systolic 127–158; BP diastolic 65–91
[2021-03-26] MEDS: GUAIFENESIN/CODEINE 5 ML LIQD PO PRN ×4 (00:35→19:41)
[2021-03-26 04:48] LABS: BASOPHILS % 0.1 % (0.0-1.0); EOSINOPHILS # (AUTO) 0.1 (0.0-0.4); EOSINOPHILS % 0.7 % (0.0-6.0); HEMOGLOBIN 13.5 g/dL (14.0-18.0); LYMPHOCYTES % 5.5 % (18.0-39.1); MEAN CORPUSCULAR HEMOGLOBIN 29.3 pg (28-32); MEAN CORPUSCULAR HGB CONC 32.9 g/dL (31-35); MEAN CORPUSCULAR VOLUME 89.1 fL (81-99); MONOCYTES # (AUTO) 0.9 (0.2-0.8); MONOCYTES % 4.7 % (4.4-11.3); NEUTROPHILS # (AUTO) 16.5 (2.1-6.9); NEUTROPHILS % 88.3 % (38.7-80.0); PLATELET COUNT 441 x10e3/uL (140-360)
[2021-03-26 05:19] LABS: ALBUMIN 1.7 g/dL (3.5-5.0); ALBUMIN/GLOBULIN RATIO 0.4 (0.8-2.0); ANION GAP 12.8 mmol/L (8-16); CALCIUM 8.1 mg/dL (8.4-10.2); CREATININE, SERUM 0.66 mg/dL (0.72-1.25); POTASSIUM 3.8 mmol/L (3.5-5.1)
[2021-03-26] MEDS: INSULIN LISPRO 100 UNIT/1 ML 3ML VIAL SQ SCH ×3 (08:58→17:12)
[2021-03-26] MEDS: POLYETHYLENE GLYCOL 3350 17 GM PACK PO SCH (09:52)
[2021-03-26] MEDS: CLOPIDOGREL BISULFATE 75 MG TAB PO SCH (09:52)
[2021-03-26] MEDS: ASPIRIN 81 MG CHEW TAB PO SCH (09:52)
[2021-03-26] MEDS: METOPROLOL TARTRATE 50 MG TAB PO SCH ×2 (09:52→20:58)
[2021-03-26] MEDS: PREGABALIN 75 MG CAP PO SCH (09:52)
[2021-03-26] MEDS: FAMOTIDINE 20 MG/2 ML VIAL IV SCH ×2 (09:52→17:13)
[2021-03-26] MEDS: DEXAMETHASONE SOD PHOS 10 MG/1 ML VIAL IV SCH (09:52)
[2021-03-26] MEDS: ENOXAPARIN SOD INJ 40 MG/0.4 ML SYR SC SCH ×2 (09:53→17:13)
[2021-03-26] MEDS: ZINC SULFATE 50 MG CAP PO SCH (09:53)
[2021-03-26] MEDS: ASCORBIC ACID 500 MG TAB PO SCH ×2 (09:53→17:13)
[2021-03-26] MEDS: LISINOPRIL 10 MG TAB PO SCH (09:53)
[2021-03-26] MEDS: DOCUSATE SODIUM 100 MG CAP PO SCH ×2 (12:10→17:13)
[2021-03-26] MEDS: MEROPENEM 1 GM in SODIUM CHLORIDE 0.9% 100 ML IV SCH ×2 (14:46→21:42)
[2021-03-26] MEDS: INSULIN GLARGINE 100 UNITS/ML VIAL SQ SCH (20:59)
[2021-03-27] VITALS (24 sets, daily range): BP systolic 86–158; BP diastolic 62–99
[2021-03-27] MEDS: GUAIFENESIN/CODEINE 5 ML LIQD PO PRN ×3 (02:05→21:45)
[2021-03-27 04:45] LABS: BASOPHILS % 0.1 % (0.0-1.0); EOSINOPHILS # (AUTO) 0.1 (0.0-0.4); EOSINOPHILS % 0.5 % (0.0-6.0); HEMATOCRIT 43.6 % (38.2-49.6); HEMOGLOBIN 14.4 g/dL (14.0-18.0); LYMPHOCYTES # (AUTO) 1.1 (1.0-3.2); LYMPHOCYTES % 5.1 % (18.0-39.1); MEAN CORPUSCULAR HEMOGLOBIN 29.4 pg (28-32); MEAN CORPUSCULAR VOLUME 89.2 fL (81-99); MONOCYTES % 4.7 % (4.4-11.3); NEUTROPHILS # (AUTO) 19.4 (2.1-6.9); PLATELET COUNT 544 x10e3/uL (140-360); RED BLOOD COUNT 4.89 x10e6/uL (4.3-5.7); RED CELL DISTRIBUTION WIDTH 12.2 % (11.7-14.4)
[2021-03-27] MEDS: MEROPENEM 1 GM in SODIUM CHLORIDE 0.9% 100 ML IV SCH ×3 (05:14→22:00)
[2021-03-27 05:23] LABS: ALBUMIN 1.8 g/dL (3.5-5.0); ALBUMIN/GLOBULIN RATIO 0.4 (0.8-2.0); ANION GAP 13.2 mmol/L (8-16); CALCIUM 8.6 mg/dL (8.4-10.2); CREATININE, SERUM 0.65 mg/dL (0.72-1.25); POTASSIUM 4.2 mmol/L (3.5-5.1)
[2021-03-27] MEDS: INSULIN LISPRO 100 UNIT/1 ML 3ML VIAL SQ SCH ×3 (07:37→16:26)
[2021-03-27] MEDS: PREGABALIN 75 MG CAP PO SCH (08:47)
[2021-03-27] MEDS: DOCUSATE SODIUM 100 MG CAP PO SCH ×3 (08:47→16:29)
[2021-03-27] MEDS: CLOPIDOGREL BISULFATE 75 MG TAB PO SCH (08:47)
[2021-03-27] MEDS: ASPIRIN 81 MG CHEW TAB PO SCH (08:47)
[2021-03-27] MEDS: MULTIVITAMINS/MINERALS TAB PO SCH (08:47)
[2021-03-27] MEDS: FAMOTIDINE 20 MG/2 ML VIAL IV SCH ×2 (08:47→16:29)
[2021-03-27] MEDS: DEXAMETHASONE SOD PHOS 10 MG/1 ML VIAL IV SCH (08:47)
[2021-03-27] MEDS: ENOXAPARIN SOD INJ 40 MG/0.4 ML SYR SC SCH ×2 (08:48→16:29)
[2021-03-27] MEDS: CHOLECALCIFEROL 1,000 UNIT TAB PO SCH (08:48)
[2021-03-27] MEDS: ASCORBIC ACID 500 MG TAB PO SCH ×2 (08:48→16:29)
[2021-03-27] MEDS: LISINOPRIL 10 MG TAB PO SCH (08:48)
[2021-03-27] MEDS: ZINC SULFATE 50 MG CAP PO SCH (08:48)
[2021-03-27] MEDS: POLYETHYLENE GLYCOL 3350 17 GM PACK PO SCH (09:00)
[2021-03-27] MEDS: METOPROLOL TARTRATE 50 MG TAB PO SCH ×2 (09:47→21:45)
[2021-03-27] MEDS ORDERED: SODIUM CHLORIDE 0.9% 1000ML 1,000 ML IV ONE (10:15)
[2021-03-27] MEDS: Vancomycin IV 1 GM in SODIUM CHLORIDE 0.9% 250ML 250 ML IV SCH (13:28)
[2021-03-27] MEDS: ONDANSETRON HCL INJ 2MG/ML 2ML 2 MG/ML VIAL IV PRN (13:29)
[2021-03-27] MEDS: INSULIN GLARGINE 100 UNITS/ML VIAL SQ SCH (21:55)
[2021-03-28] VITALS (24 sets, daily range): BP systolic 113–158; BP diastolic 65–88
[2021-03-28] MEDS: Vancomycin IV 1 GM in SODIUM CHLORIDE 0.9% 250ML 250 ML IV SCH ×2 (00:20→12:17)
[2021-03-28] MEDS: MEROPENEM 1 GM in SODIUM CHLORIDE 0.9% 100 ML IV SCH ×3 (06:32→21:59)
[2021-03-28 07:20] LABS: BASOPHILS % 0.1 % (0.0-1.0); EOSINOPHILS # (AUTO) 0.1 (0.0-0.4); EOSINOPHILS % 0.3 % (0.0-6.0); HEMATOCRIT 43.9 % (38.2-49.6); HEMOGLOBIN 14.1 g/dL (14.0-18.0); LYMPHOCYTES # (AUTO) 0.9 (1.0-3.2); MEAN CORPUSCULAR HEMOGLOBIN 29.2 pg (28-32); MEAN CORPUSCULAR HGB CONC 32.1 g/dL (31-35); MEAN CORPUSCULAR VOLUME 90.9 fL (81-99); MONOCYTES % 4.2 % (4.4-11.3); NEUTROPHILS # (AUTO) 20.9 (2.1-6.9); NEUTROPHILS % 90.7 % (38.7-80.0); PLATELET COUNT 453 x10e3/uL (140-360); RED BLOOD COUNT 4.83 x10e6/uL (4.3-5.7); RED CELL DISTRIBUTION WIDTH 12.3 % (11.7-14.4)
[2021-03-28 07:24] LABS: ALBUMIN 1.7 g/dL (3.5-5.0); ALBUMIN/GLOBULIN RATIO 0.4 (0.8-2.0); ANION GAP 11.3 mmol/L (8-16); CALCIUM 8.5 mg/dL (8.4-10.2); CREATININE, SERUM 0.61 mg/dL (0.72-1.25); POTASSIUM 4.3 mmol/L (3.5-5.1)
[2021-03-28] MEDS: ACETAMINOPHEN 325 MG TAB PO PRN (07:34)
[2021-03-28] MEDS: INSULIN LISPRO 100 UNIT/1 ML 3ML VIAL SQ SCH ×3 (07:39→17:22)
[2021-03-28] MEDS: ASPIRIN 81 MG CHEW TAB PO SCH (09:45)
[2021-03-28] MEDS: PREGABALIN 75 MG CAP PO SCH (09:45)
[2021-03-28] MEDS: CLOPIDOGREL BISULFATE 75 MG TAB PO SCH (09:45)
[2021-03-28] MEDS: DEXAMETHASONE SOD PHOS 10 MG/1 ML VIAL IV SCH (09:45)
[2021-03-28] MEDS: MULTIVITAMINS/MINERALS TAB PO SCH (09:45)
[2021-03-28] MEDS: POLYETHYLENE GLYCOL 3350 17 GM PACK PO SCH (09:45)
[2021-03-28] MEDS: FAMOTIDINE 20 MG/2 ML VIAL IV SCH ×2 (09:45→17:21)
[2021-03-28] MEDS: DOCUSATE SODIUM 100 MG CAP PO SCH ×3 (09:45→17:21)
[2021-03-28] MEDS: ZINC SULFATE 50 MG CAP PO SCH (09:46)
[2021-03-28] MEDS: LISINOPRIL 10 MG TAB PO SCH (09:46)
[2021-03-28] MEDS: ENOXAPARIN SOD INJ 40 MG/0.4 ML SYR SC SCH ×2 (09:46→17:21)
[2021-03-28] MEDS: CHOLECALCIFEROL 1,000 UNIT TAB PO SCH (09:46)
[2021-03-28] MEDS: ASCORBIC ACID 500 MG TAB PO SCH ×2 (09:46→17:21)
[2021-03-28 10:43] LABS: AMYLASE 8 U/L (25-125); LIPASE 11 U/L (8-78)
[2021-03-28] MEDS: METOPROLOL TARTRATE 50 MG TAB PO SCH ×2 (12:13→22:00)
[2021-03-28] MEDS: FLUCONAZOLE 200 MG/100 ML 100 ML IV SCH (12:16)
[2021-03-28] MEDS: INSULIN GLARGINE 100 UNITS/ML VIAL SQ SCH (21:30)
[2021-03-29] VITALS (27 sets, daily range): BP systolic 114–158; BP diastolic 61–89
[2021-03-29] MEDS ORDERED: SODIUM CHLORIDE 0.9% 250ML 250 ML ONE (00:07)
[2021-03-29] MEDS: Vancomycin IV 1 GM in SODIUM CHLORIDE 0.9% 250ML 250 ML IV SCH ×3 (00:36→13:05)
[2021-03-29] MEDS: MEROPENEM 1 GM in SODIUM CHLORIDE 0.9% 100 ML IV SCH ×3 (06:00→22:17)
[2021-03-29 06:53] LABS: BASOPHILS % 0.1 % (0.0-1.0); HEMATOCRIT 47.3 % (38.2-49.6); HEMOGLOBIN 15.3 g/dL (14.0-18.0); LYMPHOCYTES # (AUTO) 0.8 (1.0-3.2); LYMPHOCYTES % 3.6 % (18.0-39.1); MEAN CORPUSCULAR HEMOGLOBIN 29.4 pg (28-32); MEAN CORPUSCULAR HGB CONC 32.3 g/dL (31-35); MEAN CORPUSCULAR VOLUME 90.8 fL (81-99); MONOCYTES % 4.2 % (4.4-11.3); NEUTROPHILS # (AUTO) 20.9 (2.1-6.9); NEUTROPHILS % 91.7 % (38.7-80.0); PLATELET COUNT 566 x10e3/uL (140-360); RED BLOOD COUNT 5.21 x10e6/uL (4.3-5.7); RED CELL DISTRIBUTION WIDTH 12.3 % (11.7-14.4)
[2021-03-29 07:13] LABS: ALBUMIN 1.7 g/dL (3.5-5.0); ALBUMIN/GLOBULIN RATIO 0.3 (0.8-2.0); ANION GAP 14.4 mmol/L (8-16); CREATININE, SERUM 0.62 mg/dL (0.72-1.25); POTASSIUM 4.4 mmol/L (3.5-5.1)
[2021-03-29] MEDS: INSULIN LISPRO 100 UNIT/1 ML 3ML VIAL SQ SCH ×3 (07:30→17:18)
[2021-03-29] MEDS: DOCUSATE SODIUM 100 MG CAP PO SCH ×3 (08:04→16:38)
[2021-03-29] MEDS: FAMOTIDINE 20 MG/2 ML VIAL IV SCH ×2 (08:05→16:38)
[2021-03-29] MEDS: DEXAMETHASONE SOD PHOS 10 MG/1 ML VIAL IV SCH (08:05)
[2021-03-29] MEDS: ASPIRIN 81 MG CHEW TAB PO SCH (08:05)
[2021-03-29] MEDS: POLYETHYLENE GLYCOL 3350 17 GM PACK PO SCH ×2 (08:06→09:00)
[2021-03-29] MEDS: MULTIVITAMINS/MINERALS TAB PO SCH (08:06)
[2021-03-29] MEDS: METOPROLOL TARTRATE 50 MG TAB PO SCH ×2 (08:06→21:25)
[2021-03-29] MEDS: CLOPIDOGREL BISULFATE 75 MG TAB PO SCH (08:06)
[2021-03-29] MEDS: PREGABALIN 75 MG CAP PO SCH (08:06)
[2021-03-29] MEDS: LISINOPRIL 10 MG TAB PO SCH (08:08)
[2021-03-29] MEDS: CHOLECALCIFEROL 1,000 UNIT TAB PO SCH (08:08)
[2021-03-29] MEDS: ASCORBIC ACID 500 MG TAB PO SCH ×2 (08:08→16:38)
[2021-03-29] MEDS: GUAIFENESIN/CODEINE 5 ML LIQD PO PRN ×3 (08:09→22:54)
[2021-03-29] MEDS: ENOXAPARIN SOD INJ 40 MG/0.4 ML SYR SC SCH ×2 (08:09→16:38)
[2021-03-29] MEDS: ZINC SULFATE 50 MG CAP PO SCH (08:09)
[2021-03-29] MEDS: ONDANSETRON HCL INJ 2MG/ML 2ML 2 MG/ML VIAL IV PRN (10:12)
[2021-03-29] MEDS: FLUCONAZOLE 200 MG/100 ML 100 ML IV SCH (10:16)
[2021-03-29] MEDS: INSULIN GLARGINE 100 UNITS/ML VIAL SQ SCH (21:26)
[2021-03-30] VITALS (24 sets, daily range): BP systolic 83–157; BP diastolic 4–89
[2021-03-30] MEDS: Vancomycin IV 1 GM in SODIUM CHLORIDE 0.9% 250ML 250 ML IV SCH ×2 (00:56→12:00)
[2021-03-30] MEDS: GUAIFENESIN/CODEINE 5 ML LIQD PO PRN (03:32)
[2021-03-30] MEDS: MEROPENEM 1 GM in SODIUM CHLORIDE 0.9% 100 ML IV SCH ×3 (05:50→21:20)
[2021-03-30 07:15] LABS: BASOPHILS % 0.2 % (0.0-1.0); EOSINOPHILS # (AUTO) 0.1 (0.0-0.4); EOSINOPHILS % 0.3 % (0.0-6.0); HEMATOCRIT 45.1 % (38.2-49.6); HEMOGLOBIN 14.8 g/dL (14.0-18.0); LYMPHOCYTES # (AUTO) 0.9 (1.0-3.2); LYMPHOCYTES % 3.2 % (18.0-39.1); MEAN CORPUSCULAR HEMOGLOBIN 29.4 pg (28-32); MEAN CORPUSCULAR HGB CONC 32.8 g/dL (31-35); MEAN CORPUSCULAR VOLUME 89.7 fL (81-99); MONOCYTES # (AUTO) 1.1 (0.2-0.8); MONOCYTES % 4.1 % (4.4-11.3); NEUTROPHILS % 91.6 % (38.7-80.0); PLATELET COUNT 569 x10e3/uL (140-360); RED BLOOD COUNT 5.03 x10e6/uL (4.3-5.7); RED CELL DISTRIBUTION WIDTH 12.3 % (11.7-14.4)
[2021-03-30 07:16] LABS: ALBUMIN 1.7 g/dL (3.5-5.0); ALBUMIN/GLOBULIN RATIO 0.4 (0.8-2.0); ANION GAP 8.5 mmol/L (8-16); CALCIUM 8.5 mg/dL (8.4-10.2); CREATININE, SERUM 0.62 mg/dL (0.72-1.25); POTASSIUM 4.5 mmol/L (3.5-5.1)
[2021-03-30] MEDS: DOCUSATE SODIUM 100 MG CAP PO SCH ×3 (08:00→16:45)
[2021-03-30] MEDS: POLYETHYLENE GLYCOL 3350 17 GM PACK PO SCH (09:00)
[2021-03-30] MEDS: METOPROLOL TARTRATE 50 MG TAB PO SCH ×2 (09:08→21:19)
[2021-03-30] MEDS: FAMOTIDINE 20 MG/2 ML VIAL IV SCH ×2 (09:08→16:45)
[2021-03-30] MEDS: ASPIRIN 81 MG CHEW TAB PO SCH (09:08)
[2021-03-30] MEDS: LISINOPRIL 10 MG TAB PO SCH (09:09)
[2021-03-30] MEDS: PREGABALIN 75 MG CAP PO SCH (09:09)
[2021-03-30] MEDS: MULTIVITAMINS/MINERALS TAB PO SCH (09:09)
[2021-03-30] MEDS: CLOPIDOGREL BISULFATE 75 MG TAB PO SCH (09:09)
[2021-03-30] MEDS: ZINC SULFATE 50 MG CAP PO SCH (09:10)
[2021-03-30] MEDS: ENOXAPARIN SOD INJ 40 MG/0.4 ML SYR SC SCH ×2 (09:10→16:45)
[2021-03-30] MEDS: ASCORBIC ACID 500 MG TAB PO SCH ×2 (09:10→16:45)
[2021-03-30] MEDS: CHOLECALCIFEROL 1,000 UNIT TAB PO SCH (09:10)
[2021-03-30] MEDS ORDERED: DEXMEDETOMIDINE 400MCG/NS100ML 100 ML IV ONE (09:40)
[2021-03-30] MEDS: DEXMEDETOMIDINE 400MCG/NS100ML 100 ML IV PRN ×2 (09:40→19:47)
[2021-03-30] MEDS: ONDANSETRON HCL INJ 2MG/ML 2ML 2 MG/ML VIAL IV PRN (09:56)
[2021-03-30] MEDS: INSULIN LISPRO 100 UNIT/1 ML 3ML VIAL SQ SCH ×3 (10:21→16:30)
[2021-03-30] MEDS: FLUCONAZOLE 200 MG/100 ML 100 ML IV SCH (10:46)
[2021-03-30 10:59] LABS: EOSINOPHILS % (MANUAL) 1 % (0-7); LYMPHOCYTES % (MANUAL) 5 % (19-48); MONOCYTES % (MANUAL) 2 % (3.4-9.0); NEUTROPHILS % (MANUAL) 92 % (40-74); PLATELET ESTIMATE MODERATELY INCREASED; PLATELET MORPHOLOGY COMMENT NORMAL; RBC MORPHOLOGY COMMENT NORMAL
[2021-03-30] MEDS ORDERED: SODIUM CHLORIDE 0.9% 250ML 250 ML ONE (13:38)
[2021-03-30] MEDS ORDERED: SODIUM CHLORIDE 0.9% 1000ML 1,000 ML IV ONE (14:15)
[2021-03-30] MEDS ORDERED: SODIUM CHLORIDE 0.9% 1000ML 1,000 ML ONE (15:28)
[2021-03-30] MEDS: INSULIN GLARGINE 100 UNITS/ML VIAL SQ SCH (21:35)
[2021-03-31] VITALS (19 sets, daily range): BP systolic 76–142; BP diastolic 52–81
[2021-03-31] MEDS: Vancomycin IV 1 GM in SODIUM CHLORIDE 0.9% 250ML 250 ML IV SCH ×2 (00:58→11:55)
[2021-03-31] MEDS: DEXMEDETOMIDINE 400MCG/NS100ML 100 ML IV PRN ×2 (02:51→08:21)
[2021-03-31] MEDS: GUAIFENESIN/CODEINE 5 ML LIQD PO PRN (02:51)
[2021-03-31] MEDS: MEROPENEM 1 GM in SODIUM CHLORIDE 0.9% 100 ML IV SCH ×2 (05:17→12:32)
[2021-03-31 06:16] LABS: BASOPHILS % 0.1 % (0.0-1.0); EOSINOPHILS % 0.2 % (0.0-6.0); HEMATOCRIT 41.2 % (38.2-49.6); HEMOGLOBIN 13.4 g/dL (14.0-18.0); LYMPHOCYTES # (AUTO) 0.7 (1.0-3.2); LYMPHOCYTES % 3.2 % (18.0-39.1); MEAN CORPUSCULAR HEMOGLOBIN 29.6 pg (28-32); MEAN CORPUSCULAR HGB CONC 32.5 g/dL (31-35); MEAN CORPUSCULAR VOLUME 91.2 fL (81-99); MONOCYTES # (AUTO) 0.7 (0.2-0.8); MONOCYTES % 3.2 % (4.4-11.3); NEUTROPHILS # (AUTO) 21.2 (2.1-6.9); NEUTROPHILS % 92.7 % (38.7-80.0); PLATELET COUNT 492 x10e3/uL (140-360); RED BLOOD COUNT 4.52 x10e6/uL (4.3-5.7); RED CELL DISTRIBUTION WIDTH 12.5 % (11.7-14.4)
[2021-03-31 06:45] LABS: ALBUMIN 1.5 g/dL (3.5-5.0); ALBUMIN/GLOBULIN RATIO 0.4 (0.8-2.0); ANION GAP 6.1 mmol/L (8-16); CREATININE, SERUM 0.58 mg/dL (0.72-1.25); POTASSIUM 4.1 mmol/L (3.5-5.1)
[2021-03-31] MEDS: INSULIN LISPRO 100 UNIT/1 ML 3ML VIAL SQ SCH ×2 (07:10→11:30)
[2021-03-31] MEDS: DOCUSATE SODIUM 100 MG CAP PO SCH ×2 (08:00→12:00)
[2021-03-31 08:23] LABS: EOSINOPHILS % (MANUAL) 1 % (0-7); LYMPHOCYTES % (MANUAL) 4 % (19-48); MONOCYTES % (MANUAL) 2 % (3.4-9.0); NEUTROPHILS % (MANUAL) 93 % (40-74); PLATELET ESTIMATE SLIGHTLY INCREASED; PLATELET MORPHOLOGY COMMENT NORMAL; RBC MORPHOLOGY COMMENT NORMAL
[2021-03-31] MEDS: POLYETHYLENE GLYCOL 3350 17 GM PACK PO SCH (09:00)
[2021-03-31] MEDS: ZINC SULFATE 50 MG CAP PO SCH (09:00)
[2021-03-31] MEDS: PREGABALIN 75 MG CAP PO SCH (09:00)
[2021-03-31] MEDS: CLOPIDOGREL BISULFATE 75 MG TAB PO SCH (09:00)
[2021-03-31] MEDS: ASPIRIN 81 MG CHEW TAB PO SCH (09:00)
[2021-03-31] MEDS: ASCORBIC ACID 500 MG TAB PO SCH (09:00)
[2021-03-31] MEDS: MULTIVITAMINS/MINERALS TAB PO SCH (09:00)
[2021-03-31] MEDS: LISINOPRIL 10 MG TAB PO SCH (09:00)
[2021-03-31] MEDS: METOPROLOL TARTRATE 50 MG TAB PO SCH (09:00)
[2021-03-31] MEDS: CHOLECALCIFEROL 1,000 UNIT TAB PO SCH (09:00)
[2021-03-31] MEDS: ENOXAPARIN SOD INJ 40 MG/0.4 ML SYR SC SCH (09:06)
[2021-03-31] MEDS: FAMOTIDINE 20 MG/2 ML VIAL IV SCH (09:06)
[2021-03-31] MEDS: FLUCONAZOLE 200 MG/100 ML 100 ML IV SCH (11:54)
[2021-03-31] MEDS ORDERED: DEXMEDETOMIDINE 100 ML IV PRN (12:00)
[2021-03-31] MEDS ORDERED: EPINEPHRINE HCL SYRINGE ONE (12:46)
[2021-03-31] MEDS ORDERED: SODIUM BICARBONATE 8.4% INJ 50 ML SYR ONE (12:46)
[2021-03-31] MEDS ORDERED: AMIODARONE HCL INJ 150MG/3ML ONE (12:46)
[2021-03-31] MEDS ORDERED: FENTANYL 2000MCG/NS 250 250 ML IV SCH (16:00)
[2021-03-31] MEDS ORDERED: MIDAZOLAM HCL 5MG/ML 10ML VIAL 100 ML IV PRN (16:00)
[2021-03-31] MEDS ORDERED: ROCURONIUM 1250MG/NS 250 250 ML IV PRN (16:00)
[2021-03-31] MEDS ORDERED: ROCURONIUM 1250MG/NS 250 250 ML ONE (16:15)
[2021-03-31] MEDS ORDERED: NOREPINEPHRINE 8 MG/D5W 250 ML 250 ML IV PRN (16:45)
[2021-03-31] MEDS ORDERED: ENOXAPARIN SOD INJ 40 MG/0.4 ML SYR SC SCH (17:00)
[2021-03-31] MEDS ORDERED: WATER STERILE 10 ML VIAL ONE (19:26)
[2021-03-31] MEDS ORDERED: SUCCINYLCHOLINE CHLORIDE 20 MG/ML 10ML VIAL ONE (19:26)
[2021-03-31] MEDS ORDERED: ETOMIDATE 2 MG/ML 10 ML INJ IV ONE (19:26)
[2021-03-31] MEDS ORDERED: MIDAZOLAM HCL 2 MG/2 ML VIAL ONE (19:26)
[2021-03-31] MEDS ORDERED: VECURONIUM BROMIDE FOR INJ 20 MG VIAL ONE (19:26)
== END 2021-03-31 23:51 | disposition expired | DRG 871 ==
LOC: ER 20:08 → ERHOLD 23:15 → MED/SURG3 03-21 01:10 → ICU 03-22 19:12 → MED/SURG 03-31 18:08
PROVIDERS: ADMIT Internal Medicine; ATTEND Internal Medicine
PROC: 02HV33Z Insertion of Infusion Device into Superior Vena Cava, Percutaneous Approach (ICD-10-PCS; principal; 2021-03-20)
PROC: XW043E5 Introduction of Remdesivir Anti-infective into Central Vein, Percutaneous Approach, New Technology Group 5 (ICD-10-PCS; 2021-03-21)
PROC: 3E0433Z Introduction of Anti-inflammatory into Central Vein, Percutaneous Approach (ICD-10-PCS; 2021-03-21)
PROC: XW0DXM6 Introduction of Baricitinib into Mouth and Pharynx, External Approach, New Technology Group 6 (ICD-10-PCS; 2021-03-23)
PROC: 5A1935Z Respiratory Ventilation, Less than 24 Consecutive Hours (ICD-10-PCS; 2021-03-31)
PROC: 0BH18EZ Insertion of Endotracheal Airway into Trachea, Via Natural or Artificial Opening Endoscopic (ICD-10-PCS; 2021-03-31)
PROC: 5A12012 Performance of Cardiac Output, Single, Manual (ICD-10-PCS; 2021-03-31)
PROC: 5A2204Z Restoration of Cardiac Rhythm, Single (ICD-10-PCS; 2021-03-31)
PROC: 3E043XZ Introduction of Vasopressor into Central Vein, Percutaneous Approach (ICD-10-PCS; 2021-03-31)
DX: A41.89 Other specified sepsis (principal); U07.1 COVID-19; J12.82 Pneumonia due to coronavirus disease 2019; J96.01 Acute respiratory failure with hypoxia; J69.0 Pneumonitis due to inhalation of food and vomit; B37.1 Pulmonary candidiasis; E87.1 Hypo-osmolality and hyponatremia; I10 Essential (primary) hypertension; E73.9 Lactose intolerance, unspecified; I46.9 Cardiac arrest, cause unspecified; I25.10 Atherosclerotic heart disease of native coronary artery without angina pectoris; G89.4 Chronic pain syndrome; E11.42 Type 2 diabetes mellitus with diabetic polyneuropathy; E66.9 Obesity, unspecified; Z68.36 Body mass index [BMI] 36.0-36.9, adult; D75.839 Thrombocytosis, unspecified; E87.8 Other disorders of electrolyte and fluid balance, not elsewhere classified; E83.52 Hypercalcemia; E88.09 Other disorders of plasma-protein metabolism, not elsewhere classified; I25.2 Old myocardial infarction; Z95.1 Presence of aortocoronary bypass graft; Z90.49 Acquired absence of other specified parts of digestive tract; Z88.0 Allergy status to penicillin; E87.6 Hypokalemia
CPT/HCPCS: 36415; 36569; 36600; 71045; 71260; 76700; 80053; 80061; 80202; 82150; 82550; 82553; 82728; 82948; 83036; 83605; 83615; 83690; 83735; 84100; 84443; 84484; 85025; 86141; 87040; 87070; 87205; 93005; 93306; 94799; 96372; 99251; 99284; J0171; J0248; J0330; J0360; J0456; J0696; J1100; J1450; J1650; J1815; J1817; J2185; J2250; J2405; J2930; J3370; J7030; J7050; Q9967; U0002